=== PATIENT | male | born 1995 | race Caucasian/White ===

== ENCOUNTER 2025-10-03 10:40 | Emergency (ER) | payer OTHER, SELFPAY ==
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
[2025-10-03 11:01] VITALS: BP 122/74; PULSE 88; RESP 18; TEMP 36.2; O2SAT 99
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
== END 2025-10-03 13:09 | disposition home or self-care (01) ==
PROVIDERS: Emergency Provider Nurse Practitioner
DX: S82.892A Other fracture of left lower leg, initial encounter for closed fracture (principal); V43.52XA Car driver injured in collision with other type car in traffic accident, initial encounter
CPT/HCPCS: 29515; 73610; 73630; 99204; G0463

== ENCOUNTER 2025-10-17 01:24 | Day surgery (SDC) | payer OTHER, SELFPAY ==
--- NOTE | 2025-10-12 09:23 | SUR.PREOP ---
[facility] has started construction of its new state of the art ER which will open Spring 2026. With this, we anticipate parking may be a challenge for some our surgical patients and families. Parking spaces are limited but are available for all Surgical, obstetrics, and ER patients sharing this lot. If you arrive and find you are having a hard time finding a parking space, please note that we understand the challenges, please drive around the hospital and park near Hospital Entrance 1. When you enter this entrance, you can ask a volunteer to direct or take you back to the surgical waiting area to check in. We appreciate everyone?s understanding of these expected challenges while we build for your future. Report to the Outpatient Waiting Room, entrance under the green pavilion located off [address], at time _0615_ on date _10/17/25_. Planned Procedure Time: _814_.? Time changes happen often and if your time is changed the preop area will call you the afternoon before. - You and your visitor will be asked to self-screen and do not enter if you have any COVID symptoms. Please call surgeon if you need to reschedule. - A mask is optional within the hospital at this time. Patients may have clear liquids (water, carbonated beverages, clear teas, apple juice) until 3 hours prior to surgery with a maximum of 20 ounces. - No food from midnight until time of surgery and no smoking, or chewing tobacco (or any form of nicotine). No chewing gum, candy or mints. Take only the following medications with a SIP of water on the morning of surgery: _NA_ DO NOT STOP ANY OF YOUR OTHER PRESCRIPTION MEDICATIONS PRIOR TO SURGERY EXCEPT THE FOLLOWING Hold all vitamins and supplements for 3 days per anesthesiologist. Medications to discontinue per physician _NA_ Date to take last dose_NA_ Please no make-up, nail sinhala, hairspray, perfume, deodorant, or body powder the day of surgery.? No jewelry (including any body piercings) or valuables the day of surgery, leave them at home.? Please take a shower or bath the night before, or the morning of, surgery with an antibacterial soap.? Wear comfortable, loose fitting clothing. - Jewelry must be removed prior to entering the operating room.? Rings and piercings that are not removed may be cut off. - The hospital will not accept responsibility for valuables.? - Please leave all valuables, including medications, at home the day of surgery. If you are going home after surgery, a licensed milk wagon driver must drive you home.? - NO public transportation without another adult if you receive anesthesia. - We recommend that an adult stay with you for 24 hours following discharge. - We also recommend that you do not drive, make important decision, drink alcoholic beverages, or take any drugs that were not prescribed by your health care provider for at least 24 hours after your discharge time. Follow any additional instructions given to you from your surgeon. Telephone instructions given to _MARIUM_and asked if any additional questions and then verbalized understanding. Patient advised to call surgeon office or pre surgery nurse liaison [phone] if any additional questions.
[2025-10-12 09:36] VITALS: BMI 19.1
[2025-10-17] VITALS (9 sets, daily range): BP systolic 113–139; BP diastolic 59–78; PULSE 55–83; RESP 16–20; TEMP 36.5–36.7; O2SAT 100; BMI 18.8
--- NOTE | ~2025-10-17 | XR_ITS ---
EXAMINATION: XR surgery orthopedic DATE: 10/17/2025 09:22 INDICATION: ORIF left ankle fracture TECHNIQUE: 4 fluoroscopic images of the left ankle were obtained procedure performed by Dr. Garcia. Radiologist was not present for the imaging or procedure. The amount of fluoroscopy time used during this procedure was 0.6 minutes. The dose area product was 0.024 mGym^2. COMPARISON: 10/11/2025 FINDINGS: Interval reduction of the previously displaced medial malleolus fracture of the distal left tibia which is now in near-anatomic alignment and fixed with a pair of lag screws. No other fractures identified. Ankle mortise is congruent. Joint spaces are normal. IMPRESSION: 1. Fluoroscopy utilized during reduction and screw fixation of a medial malleolus fracture of the distal left tibia which is now in near-anatomic alignment. See procedure note for further detail. Reviewed, dictated and finalized at location A. CAL APPARATUS MODEL MAKER IMPRESSION: 1. Fluoroscopy utilized during reduction and screw fixation of a medial malleol us fracture of the distal left tibia which is now in near-anatomic alignment. S ee procedure note for further detail.
--- OUTSIDE RECORDS SUMMARY | 2025-10-17 01:26 | XMS_ITS | Clinical Summary ---
Author Organization [facility] Address [address] [place] [id number] Care Team Providers Care Real Estate Sales Manager Name Role Phone Rachid Cooney MD Primary Care Provider [phone] Allergies No known active allergies Medications No known medications Active Problems Problem Noted Date Diagnosed Date Screening for cardiovascular condition Palpitations 07/29/2023 Family History Medical History Relation Name Comments No Known Problems Father No Known Problems Mother Relation Name Status Comments Father Mother Social History Tobacco Use Types Packs/Day Years Used Date Smoking Tobacco: Never Tobacco Cessation:Counseling Given: Not Answered Personal Safety Answer Date Recorded Have you ever been in or are you currently in a harmful physical or emotional relationship or is someone making you feel afraid or unsafe? Denies 10/20/2023 Sex and Gender Information Value Date Recorded Sex Assigned at Not on file Legal Sex Male 12:48 PM CDT Gender Identity Not on file Sexual Orientation Not on file Last Filed Vital Signs Vital Sign Reading Time Taken Comments Blood Pressure 131/102 10/20/2023 6:29 PM MEDICAL REVIEW COORDINATOR Pulse 100 10/20/2023 6:29 PM MEDICAL REVIEW COORDINATOR Temperature 36.6 C (97.9 F) 10/20/2023 6:29 PM MEDICAL REVIEW COORDINATOR Respiratory Rate 20 10/20/2023 6:29 PM MEDICAL REVIEW COORDINATOR Oxygen Saturation 99% 10/20/2023 6:29 PM MEDICAL REVIEW COORDINATOR Inhaled Oxygen Concentration - - Weight 90.3 kg (199 lb 1.2 oz) 10/20/2023 6:29 P M MEDICAL REVIEW COORDINATOR Height 200.7 cm (6' 7) 10/20/2023 6:29 PM MEDICAL REVIEW COORDINATOR Body Mass Index 22.43 10/20/2023 6:29 PM MEDICAL REVIEW COORDINATOR Plan of Treatment Health Maintenance Due Date Last Done Comments Depression Screening 1997 Hepatitis C Screening 1997 DTaP/Tdap/Td Vaccine (1 - Tdap) 2008 Varicella Vaccines (1 of 2 - 13+ 2-dose series) 2010 Hepatitis B Screening 2015 Regular Well Visit/Exam 18-64 2015 HPV Vaccines (1 - 3-dose SCD M series) 2024 Influenza Vaccine (#1) 2025 Pneumococcal vaccine <65 Aged Out No longer eligible based on patient's age to complete this topic Insurance Care Teams Real Estate Sales Manager Relationship Specialty Start Date End Date Rachid Cooney MD [address] [facility] [address] [place] [address] PCP - General Internal Medicine 06/09/23
--- NOTE | 2025-10-17 07:22 | P.PNAN_ITS ---
Anes - Initial Pre Proc Eval Procedure: Operation Date: 10/17/25 08:15 Proposed Procedures p Open Reduction Internal Fixation Left Ankle - Drew Garcia MD Date/Time: 10/17/25 07:22 Surgeon: Drew Garcia MD Pre Op Diagnosis: left ankle fx Patient Data Age: 30 Gender: M Height: 2.01 m Weight: 77.27 kg Allergies Allergy/AdvReac Type Severity Reaction Status Date / Time No Known Allergies Allergy Verified 10/12/25 09:17 Home Medications ?Medication ?Instructions ?Recorded ?Confirmed ?Type No Home Medications 10/11/25 10/12/25 H istory Patient hx anesthesia problems: none Family hx anesthesia problems: none Results Review: All pre-operative results and documents have been reviewed as part of the pre- operative evaluation. [facility] Past Medical History Medical History Fracture of medial malleolus, left, closed Social History Social History Smoking status: Never smoker Second hand tobacco smoke exposure: No Alcohol intake: never Substance use: never Substance use type: does not use Living arrangements: with family Spiritual care concerns: No Anes - Eval Final PreProcedure Day of Procedure 10/17/25 07:22 Patient weight: normal Heart: regular rate and rhythm Lungs: clear to auscultation Airway: Mallampati scale class II Neurological: alert and oriented Last oral intake: >/= 8 hours ASA classification: I Emergent: no Anesthetic plan: proceed Anesthesia type and monitoring: general LMA and standard monitoring Results Review: All pre-operative results and documents have been reviewed as part of the pre- operative evaluation. Informed Consent: The patient's anesthetic plan and its attendant risks and benefits were discussed with the patient/family/POA. Questions were solicited and answers provided to the satisfaction of the patient/family/POA.
--- NOTE | 2025-10-17 07:43 | WPDHPUPDATE1 ---
History and Physical Update Update Date/Time: 10/17/25 07:43 History and Physical has been reviewed, including an updated exam of the patient. There are NO changes in the patient's condition. Risks, benefits, and alternatives have been discussed and questions answered. Patient agrees to proceed with procedure.
[2025-10-17] MEDS: ACETAMINOPHEN 500 MG TABLET 1000 MG PO (07:49)
[2025-10-17] MEDS: LACTATED RINGERS 1,000 ML 30 ML IV CONT ×2 (07:49→10:00)
[2025-10-17] MEDS: KETOROLAC 15 MG/ML VIAL (*BKC) IV PUSH (07:49)
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
[2025-10-17] MEDS: ceFAZolin 2 GM in SODIUM CHLORIDE 0.9% IV 50 ML 100 ML IVPB (08:37)
[2025-10-17] MEDS: BUPIVACAINE/EPINEPHRINE 0.5% 50 ML VIAL 30 ML INFILTRATE (08:38)
[2025-10-17] MEDS: fentaNYL CITRATE INJ (*CRX) 100 MCG/2 ML VIAL 25 MCG IV PUSH ×3 (09:49→09:55)
[2025-10-17] MEDS: ONDANSETRON INJ 4 MG/2 ML VIAL IV PUSH (10:00)
[2025-10-17] MEDS: oxyCODONE HCL (*CRX) 5 MG TAB IR PO (10:52)
== END 2025-10-17 11:21 | disposition home or self-care (01) ==
PROVIDERS: Visit Provider Orthopaedic Surgery
PROC: (CPT 27766; principal; 2025-10-17 08:15)
DX: S82.52XA Displaced fracture of medial malleolus of left tibia, initial encounter for closed fracture (principal); V49.9XXA Car occupant (driver) (passenger) injured in unspecified traffic accident, initial encounter
CPT/HCPCS: 27766; 99199; J0690; A9270; C1713; C1769; J1100; J1885; J2003; J2250; J2405; J2704; J3010; J7120